=== PATIENT | female | born 1975 | race Caucasian/White ===

== ENCOUNTER 2021-07-17 15:16 | Observation (INO) ==
[2021-07-17 15:51] LABS: Basophils % 0.5 % (0.0-0.8); Eosinophils # 0.1 10*3/uL (0.0-0.87); Eosinophils % 0.8 % (0.00-10.9); Hematocrit 36.3 VOL% (35.7-47.0); Hemoglobin 11.2 GM/DL (12.0-16.0); Immature Granulocytes % 0.2 %; Immature Granulocytes Absolute 0.01 #; Lymphocytes # 2.1 10*3/uL (1.4-4.0); Lymphocytes % 32.1 % (21.3-54.2); Mean Corpuscular HGB Conc 30.9 GM/DL (32-36); Mean Corpuscular Volume 87.1 FL (87-102); Mean Platelet Volume 9.5 FL (9.6-12.0); Monocytes % 8.4 % (1.7-12.7); Platelet Count 463 T/CUMM (130-400); Red Blood Count 4.17 MC/CUMM (3.8-5.5); Red Cell Distribution Width 15.1 % (9.3-17.3); White Blood Count 6.6 T/CUMM (4-12)
[2021-07-17 16:16] LABS: Albumin 4.2 G/DL (3.4-5.0); Bilirubin,Total 1.2 MG/DL (0.20-1.00); Calcium 10.1 MG/DL (8.5-10.1); Osmolality,Calculated 267.1 MOS/KG (273-304); Potassium 4.1 MMOL/L (3.5-5.1); Total Protein 7.9 G/DL (6.4-8.2)
[2021-07-17 16:20] LABS: Eosinophils 2 % (0-10); Lymphocytes 36 % (20-55); Nucleated Red Blood Cells 1 (0-5); Segmented Neutrophils 56 % (50-85); Total Cells Counted 100
[2021-07-17 16:21] LABS: Anisocytosis 1+; Atypical Lymphocytes 1+; Platelet Estimate Normal
[2021-07-17] MEDS ORDERED: NITROGLYCERIN SL 0.4 MG TABLET SL ONE (17:02)
[2021-07-17] MEDS ORDERED: ACETAMINOPHEN 500 MG TABLET ONE (17:03)
[2021-07-17] MEDS ORDERED: ACETAMINOPHEN 500 MG TABLET PO STA (17:21)
[2021-07-17] MEDS ORDERED: NITROGLYCERIN SL 0.4 MG TABLET SL STA (17:23)
[2021-07-17] MEDS ORDERED: ENOXAPARIN 30 MG/0.3 ML SYRINGE SUBCUT STA (17:26)
[2021-07-17] MEDS ORDERED: ACETAMINOPHEN 325 MG TABLET PO PRN (17:48)
[2021-07-17] MEDS ORDERED: GLUCAGON 1 MG VIAL IM PRN (17:48)
[2021-07-17] MEDS ORDERED: DEXTROSE 50% 25 GM/50 ML VIAL IV PRN (17:48)
[2021-07-17] MEDS ORDERED: ONDANSETRON 4 MG/2 ML VIAL IV PRN (17:48)
[2021-07-17] MEDS ORDERED: ENOXAPARIN 60 MG/0.6 ML SYRINGE SUBCUT SCH (18:00)
[2021-07-17] MEDS: cefTRIAXone 1,000 MG in SODIUM CHLORIDE 0.9% 100 ML IV SCH (18:40)
[2021-07-17] MEDS: NICOTINE 14 MG/24 HR PATCH TRANSDERM SCH (22:10)
[2021-07-17 22:22] LABS: Bilirubin,Urine Negative (Negative); Blood, Urine Small mg/dL (Negative); Glucose,Urine (UA) Negative (Negative); Ketones,Urine Negative (Negative); Mucus,Urine Occasional /LPF (Occasional); Nitrite,Urine Negative (Negative); Protein,Urine Negative; RBC,Urine 1 /HPF (0-4); Squamous Epithelial Cell,Urine Occasional /HPF (0-10); Urine Appearance CLEAR (Clear); Urine Color Straw (Yellow); Urine Specific Gravity 1.008 (1.001-1.035); Urine Urobilinogen < 2.0 EU/DL (0.2-1.0)
[2021-07-17 23:13] LABS: Barbiturates Screen,Urine Negative (Negative); Benzodiazepines Screen,Urine Negative (Negative); Cannabinoid Screen,Urine Negative (Negative); Opiate Screen,Urine Negative (Negative); Phencyclidine Screen,Urine Negative (Negative)
[2021-07-18 05:15] LABS: Basophils # 0.1 10*3/uL (0.0-0.2); Basophils % 0.9 % (0.0-0.8); Eosinophils # 0.2 10*3/uL (0.0-0.87); Eosinophils % 2.6 % (0.00-10.9); Hematocrit 34.2 VOL% (35.7-47.0); Hemoglobin 10.4 GM/DL (12.0-16.0); Immature Granulocytes % 0.2 %; Immature Granulocytes Absolute 0.01 #; Lymphocytes # 2.2 10*3/uL (1.4-4.0); Lymphocytes % 36.9 % (21.3-54.2); Mean Corpuscular HGB Conc 30.4 GM/DL (32-36); Mean Corpuscular Volume 87.2 FL (87-102); Mean Platelet Volume 9.5 FL (9.6-12.0); Monocytes % 10.5 % (1.7-12.7); Neutrophils % 48.9 % (38.7-73.9); Platelet Count 421 T/CUMM (130-400); Red Blood Count 3.92 MC/CUMM (3.8-5.5); Red Cell Distribution Width 15.1 % (9.3-17.3); White Blood Count 5.8 T/CUMM (4-12)
[2021-07-18 05:42] LABS: Band Neutrophils 3 % (0-10); Eosinophils 2 % (0-10); Hypochromasia 1+; Lymphocytes 33 % (20-55); Platelet Estimate Increased; Segmented Neutrophils 52 % (50-85); Total Cells Counted 100
[2021-07-18 05:47] LABS: Albumin 3.5 G/DL (3.4-5.0); Bilirubin,Total 0.9 MG/DL (0.20-1.00); Calcium 8.9 MG/DL (8.5-10.1); Potassium 3.7 MMOL/L (3.5-5.1); Risk Ratio 2.43; Thyroid Stimulating Hormone 1.68 uIU/ml (0.358-3.74); Total Protein 7.1 G/DL (6.4-8.2); VLDL Cholesterol 17.8 MG/DL
[2021-07-18] MEDS ORDERED: NITROGLYCERIN SL 0.4 MG TABLET SL ONE (08:15)
[2021-07-18] MEDS ORDERED: PANTOPRAZOLE 40 MG TABLET PO SCH (09:00)
[2021-07-18] MEDS ORDERED: ASPIRIN CHEW 81 MG TABLET PO SCH (09:30)
[2021-07-18] MEDS ORDERED: DIAZEPAM 5 MG TABLET PO ONE (12:10)
[2021-07-18] MEDS ORDERED: diphenhydrAMINE CAP 25 MG CAPSULE PO ONE (12:10)
[2021-07-18] MEDS ORDERED: SODIUM CHLORIDE 0.45% 1,000 ML IV SCH (12:30)
[2021-07-18] MEDS ORDERED: LIDOCAINE 1% 20 ML VIAL ONE (12:31)
[2021-07-18] MEDS ORDERED: HEPARIN/NACL 0.9% 2 UNITS/ML 2,000 UNIT/1,000 ML BAG IV ONE (12:31)
[2021-07-18] MEDS ORDERED: VERAPAMIL 5 MG/2 ML VIAL ONE (12:49)
[2021-07-18] MEDS ORDERED: NITROGLYCERIN DRIP 50 MG/250 ML BOTTLE IV ONE (12:49)
[2021-07-18] MEDS ORDERED: HYDROmorphone 2 MG/1 ML VIAL ONE (12:49)
[2021-07-18] MEDS ORDERED: MIDAZOLAM 2 MG/2 ML VIAL ONE (12:49)
[2021-07-18] MEDS ORDERED: ASPIRIN 325 MG TABLET ONE (12:51)
[2021-07-18] MEDS: NICOTINE 14 MG/24 HR PATCH TRANSDERM SCH (13:05)
[2021-07-18] MEDS ORDERED: ENOXAPARIN 30 MG/0.3 ML SYRINGE ONE (13:10)
[2021-07-18] MEDS ORDERED: SODIUM CHLORIDE 0.9% 1,000 ML IV SCH (13:30)
[2021-07-18] MEDS ORDERED: ENOXAPARIN 60 MG/0.6 ML SYRINGE SUBCUT SCH (18:00)
[2021-07-18 18:41] VITALS: BP 137/74
[2021-07-18] MEDS: cefTRIAXone 1,000 MG in SODIUM CHLORIDE 0.9% 100 ML IV SCH (19:37)
== END 2021-07-18 19:34 | disposition home or self-care (01) ==
LOC: SUPCPDRO → N.EDINP 15:16 → N.ED 15:16 → N.EDINP 20:17 → N.TELEN 20:35
PROVIDERS: ADMIT Internal Medicine; ATTEND Internal Medicine